=== PATIENT | female | born 1975 | race Caucasian/White ===

== ENCOUNTER 2019-02-28 11:00 | Outpatient (CLI) | payer OTHER ==
[2019-02-28] MEDS ORDERED: COZAAR50 MG PO (13:47)
[2019-02-28] MEDS ORDERED: FERROUS SULFATE PO (13:48)
[2019-02-28] MEDS ORDERED: FOLIC ACID1 MG PO (13:48)
[2019-02-28] MEDS ORDERED: OCUVITE EYE HE1 EACH PO (13:49)
== END 2019-02-28 11:31 | disposition home or self-care (01) ==
LOC: MAMO-SONO 11:00
DX: N60.01 Solitary cyst of right breast (principal)

== ENCOUNTER 2019-02-28 12:00 | Inpatient (IN) | payer OTHER ==
[~2019-02-28] VITALS: Ht 154.9 cm; Wt 122.5 kg
[2019-02-28] MEDS ORDERED: COZAAR50 MG PO (13:47)
[2019-02-28] MEDS ORDERED: FERROUS SULFATE PO (13:48)
[2019-02-28] MEDS ORDERED: FOLIC ACID1 MG PO (13:48)
[2019-02-28] MEDS ORDERED: OCUVITE EYE HE1 EACH PO (13:49)
[2019-03-02] MEDS ORDERED: FERROUS SULFAT325 MG PO (09:28)
== END 2019-03-05 11:51 | disposition home or self-care (01) | DRG 743 ==
LOC: EDUNIT# 12:00 → RECOVERY 12:00 → O/R 03-02 05:54 → OB/GYN 03-02 05:54 → RECOVERY 03-02 09:15 → OB/GYN 03-02 16:31
PROVIDERS: ADMIT Obstetrics & Gynecology
PROC: 0UT90ZZ Resection of Uterus, Open Approach (ICD-10-PCS; principal; 2019-03-02 09:15)
PROC: 0UT10ZZ Resection of Left Ovary, Open Approach (ICD-10-PCS; 2019-03-02 09:15)
DX: D25.1 Intramural leiomyoma of uterus (principal); N80.0 Endometriosis of uterus; N92.1 Excessive and frequent menstruation with irregular cycle; N83.292 Other ovarian cyst, left side; D51.0 Vitamin B12 deficiency anemia due to intrinsic factor deficiency